=== PATIENT | male | born 1955 | race Caucasian/White ===

== ENCOUNTER → 2017-07-17 08:11 | Outpatient (CLI) | payer OTHER ==
[2017-07-18 09:12] LABS: HEPATITIS C ANTIBODY <0.1 (0.0-0.9)
== END | disposition home or self-care (01) ==
LOC: D.US 08:11
PROVIDERS: Internal Medicine Gastroenterology
DX: R74.8 Abnormal levels of other serum enzymes (principal); R10.9 Unspecified abdominal pain; R63.4 Abnormal weight loss

== ENCOUNTER 2017-09-21 05:22 | Day surgery (SDC) | payer OTHER ==
[~2017-09-21] VITALS: Ht 185.4 cm; Wt 115.0 kg
--- NOTE | ~2017-09-21 | OP ---
PATIENT NAME: STEFANY LALA MEDICAL RECORD: [id number] :57 [facility] AD[facility] DATE: SURGEON: LAURE MADDOX DO DATE OF OPERATION: 09/21/2017 PROCEDURE: EGD with biopsies. INDICATIONS FOR PROCEDURE: Nausea and vomiting, which has resolved; epigastric pain; belching; abnormal weight loss; elevated liver enzymes. SCOPE: Olympus video gastroscope. MEDICATIONS: Propofol 160 mg IV per anesthesia. ESTIMATED BLOOD LOSS: Minimal. COMPLICATIONS: None. FINDINGS: Informed consent was given. The patient was made comfortable with the above medication. After reaching an adequate level of sedation by slow IV push, the patient was placed on his left side. The endoscope was advanced under direct visualization through the mouth to the second portion of the duodenum. The upper, middle, and lower thirds of the esophagus appeared normal. At the GE junction, there was mild evidence of LA class A reflux-induced esophagitis. The endoscope was advanced beyond the GE junction into the stomach and retroflexed to view the cardia. The cardia appeared normal. In the stomach, there was some pooling of bilious fluid in the fundus and body. This was easily suctioned through the endoscope. Throughout the entire stomach, there were patchy areas of gastritis characterized by congestion, erythema, and friability. There was some oozing of blood minimally with use of the water jet. In the prepyloric area, there were a few erosions consistent with medication effect. Two cold forceps biopsies were taken from the stomach to rule out the presence of H. pylori and to submit for histology. The endoscope was advanced beyond the pylorus into the duodenum which appeared normal in the bulb, first portion, and second portion. The endoscope was then withdrawn from the patient. The patient tolerated the procedure well and there were no complications. IMPRESSION: 1. LA class A reflux induced esophagitis of mild severity. 2. Gastritis with some congestion, erythema, friability, and prepyloric erosions. PLAN AND RECOMMENDATIONS: 1. Discharge home when recovery parameters are met. 2. Follow up biopsy specimen results. 3. Continue current diet. 4. Continue current medications. 5. We will increase the patient's omeprazole to 40 mg daily times 60 days and then this can be reduced back down to 20 mg daily. 6. If biopsies indicate presence of H. pylori, this will be treated. 7. Consider a low-FODMAP diet for the increased gas and belching. TRANSINT:[id number] Voice Confirmation ID: [id number] DOCUMENT ID: [id number] OPERATIVE REPORT [id number] STEFANY LALA NATHAN A DO at 0911 CC: [id number] DICTATION DATE: 09/21/17 0759 [employer] INST[employer]ER: 09/21/17 0934 [facility] 09/21/17 [id number] [place] [address]
[2017-09-21] MEDS ORDERED: GLUCOPHAGE500 MG PO (05:59)
[2017-09-21] MEDS ORDERED: GLUCOTROL 5 MG T5 MG PO (06:00)
[2017-09-21] MEDS ORDERED: LIPITOR10 MG PO (06:00)
[2017-09-21] MEDS ORDERED: COREG25 MG PO (06:01)
[2017-09-21] MEDS ORDERED: LOSARTAN POTASS25 MG PO (06:01)
[2017-09-21] MEDS ORDERED: LEXAPRO10 MG PO (06:02)
[2017-09-21] MEDS ORDERED: NIASPAN500 MG PO (06:03)
[2017-09-21] MEDS ORDERED: FISH OIL 1,0001 CA1 PO (06:03)
[2017-09-21] MEDS ORDERED: PRADAXA150 MG PO (06:03)
[2017-09-21] MEDS ORDERED: GLUCOSAMINE HC500 MG PO (06:04)
[2017-09-21 06:09] VITALS: BP 126/70; Ht 185.4 cm; Wt 115.0 kg
[2017-09-21 06:13] LABS: BASOPHILS 0.4 % (0-2); EOSINOPHILS 2.2 % (0-7); HEMATOCRIT 40.1 % (42.0-54.0); IMMATURE GRANULOCYTES 0.1 % (0-5); LYMPHOCYTES 22.7 % (15-50); MCH 28.6 pg (26.0-34.0); MCHC 32.4 g/dL (31.0-37.0); MCV 88.1 fL (80.0-100.0); MEAN PLATELET VOLUME 11.7 fL (7.4-10.4); MONOCYTES 7.7 % (2-11); NEUTROPHILS 66.9 % (40-80); PLATELET COUNT 121 10x3/uL (130-400); RBC 4.55 10x6/uL (4.20-6.10); RDW 14.5 % (11.5-14.5); WBC 7.2 10x3/uL (4.8-10.8)
[2017-09-21 06:33] LABS: CALC OSMOLALITY 285 mosm/kg (275-300); CALCIUM 9.2 mg/dL (8.5-10.1); CARBON DIOXIDE 26.1 mmol/L (21.0-32.0); CHLORIDE - SERUM 106 mmol/L (98-107); CREATININE - SERUM 0.7 mg/dL (0.6-1.3); GLUCOSE 172 mg/dL (74-106); POTASSIUM - SERUM 4.4 mmol/L (3.5-5.1); SODIUM 141 mmol/L (136-145); UREA NITROGEN 14 mg/dL (7-18); eGFR NON AFRICAN AMERICAN > 90 mL/min (90-120)
== END 2017-09-21 08:52 | disposition home or self-care (01) ==
LOC: D.OPS 05:22
PROVIDERS: Anesthesiology
DX: R10.13 Epigastric pain (principal); R63.4 Abnormal weight loss; R74.8 Abnormal levels of other serum enzymes; K21.0 Gastro-esophageal reflux disease with esophagitis; K29.70 Gastritis, unspecified, without bleeding; E11.9 Type 2 diabetes mellitus without complications; I10 Essential (primary) hypertension; J45.909 Unspecified asthma, uncomplicated; Z95.1 Presence of aortocoronary bypass graft; Z01.812 Encounter for preprocedural laboratory examination

== ENCOUNTER 2017-09-28 05:59 | Day surgery (SDC) | payer OTHER ==
[~2017-09-28] VITALS: Ht 185.4 cm; Wt 115.0 kg
--- NOTE | ~2017-09-28 | OP ---
PATIENT NAME: STEFANY LALA MEDICAL RECORD: [id number] :57 [facility]: SURGEON: LAURE MADDOX DO DATE OF OPERATION: 09/28/2017 PROCEDURE: Colonoscopy with polypectomy. INDICATIONS FOR PROCEDURE: Abnormal weight loss and nausea and vomiting and colorectal cancer screening. SCOPE: Olympus video pediatric colonoscope. MEDICATIONS: Propofol 520 mg IV per anesthesia. WITHDRAWAL TIME: 10 minutes. ESTIMATED BLOOD LOSS: Minimal. COMPLICATIONS: None. FINDINGS: Informed consent was given. The patient was made comfortable with the above medication. After reaching an adequate level of sedation by slow IV push, the patient was placed on his left side. A digital rectal examination was performed and revealed benign prostatic hyperplasia. The endoscope was advanced under direct visualization through the rectum to the terminal ileum. The endoscope was slowly withdrawn and mucosa was carefully examined. The prep quality was good. There was evidence of moderately severe yanez diverticulosis with larger and more severe diverticula noted in the sigmoid colon. There was no evidence of active diverticulitis. There were 3 polyps visualized on today's examination. They were all benign appearing and sessile and located in the transverse colon. They ranged in size from 2-5 mm in diameter. One was removed using hot forceps and the other 2 were removed using cold forceps. Retroflexion was performed in the rectum with visualization of grade I internal hemorrhoids without bleeding. The endoscope was withdrawn from the patient. The patient tolerated the procedure well and there were no complications. IMPRESSION: 1. Moderately severe diverticulosis. 2. Grade I internal hemorrhoids. 3. Three benign appearing sessile polyps located in the transverse colon, removed using a combination of hot and cold forceps. PLAN AND RECOMMENDATIONS: 1. Discharge home when recovery parameters are met. 2. Follow up biopsy specimen results. 3. High fiber diet. 4. Continue current medications. 5. Recall colonoscopy in 3-5 years pending pathology of polyps removed today. TRANSINT:[id number] Voice Confirmation ID: [id number] DOCUMENT ID: [id number] OPERATIVE REPORT [id number] STEFANY LALALAURE FORTUNE DO at 1651 CC: [id number] DICTATION DATE: 09/28/17 0840 [employer]ER: 09/28/17 1058 [facility] 09/28/17 [facility] [address] [place] [address]
[~2017-09-28 05:59] MED LIST: COREG25 MG PO; FISH OIL 1,0001 CA1 PO; GLUCOPHAGE500 MG PO; GLUCOSAMINE HC500 MG PO; GLUCOTROL 5 MG T5 MG PO; LEXAPRO10 MG PO; LIPITOR10 MG PO; LOSARTAN POTASS25 MG PO; NIASPAN500 MG PO; PRADAXA150 MG PO
[2017-09-28 06:32] VITALS: BP 137/80; Ht 185.4 cm; Wt 115.0 kg
[2017-09-28 06:40] LABS: HEMATOCRIT 42.9 % (42.0-54.0); HEMOGLOBIN 14.5 g/dL (13.5-17.5); MCH 29.4 pg (26.0-34.0); MCHC 33.8 g/dL (31.0-37.0); MCV 86.8 fL (80.0-100.0); MEAN PLATELET VOLUME 12.1 fL (7.4-10.4); RBC 4.94 10x6/uL (4.20-6.10); RDW 14.5 % (11.5-14.5); WBC 8.1 10x3/uL (4.8-10.8)
[2017-09-28 07:06] LABS: CALC OSMOLALITY 286 mosm/kg (275-300); CALCIUM 10.1 mg/dL (8.5-10.1); CHLORIDE - SERUM 107 mmol/L (98-107); CREATININE - SERUM 0.5 mg/dL (0.6-1.3); GLUCOSE 152 mg/dL (74-106); POTASSIUM - SERUM 5.4 mmol/L (3.5-5.1); SODIUM 143 mmol/L (136-145); UREA NITROGEN 10 mg/dL (7-18); eGFR NON AFRICAN AMERICAN > 90 mL/min (90-120)
== END 2017-09-28 09:39 | disposition home or self-care (01) ==
LOC: D.OPS 05:59
PROVIDERS: Anesthesiology
DX: D12.3 Benign neoplasm of transverse colon (principal); K63.5 Polyp of colon; K57.30 Diverticulosis of large intestine without perforation or abscess without bleeding; K64.0 First degree hemorrhoids; R63.4 Abnormal weight loss; Z01.812 Encounter for preprocedural laboratory examination

== ENCOUNTER → 2018-01-20 08:46 | Outpatient (CLI) | payer OTHER ==
[2017-09-28 06:32] VITALS: BMI 33.4
[2018-01-20 09:47] LABS: ALBUMIN 3.7 g/dL (3.4-5.0); BILIRUBIN - DIRECT 0.18 mg/dL (0.00-0.30); BILIRUBIN - INDIRECT 0.43 mg/dL (0.00-1.00); BILIRUBIN - TOTAL 0.61 mg/dL (0.2-1.3); PROTEIN - SERUM 7.4 g/dL (6.4-8.2)
== END | disposition home or self-care (01) ==
LOC: D.US 01-14 09:30
PROVIDERS: Internal Medicine Gastroenterology
DX: K76.0 Fatty (change of) liver, not elsewhere classified (principal)